=== PATIENT | female | born 1940 | race Caucasian/White ===

== ENCOUNTER 2016-08-08 13:24 | Emergency (ER) | payer MEDICARE, MEDICAID ==
[~2016-08-08 13:24] MED LIST: ALPR.25 PO; CYCL-36 PO; EZET10 PO; FLUT1SPR9 NASAL; GLIM4TAB PO; GLUC1000 PO; INSU1INJ14 SQ; LISI-363 PO; LORTA5 PO; ROSU5 PO; TAB-TAB PO; TEMA15 PO
[2016-08-08 13:26] VITALS: BP 134/82; PULSE 104; RESP 15; TEMP 98.2; O2SAT 98
[2016-08-08] MEDS ORDERED: MORPHINE SULFATE 4 MG/ML INJ IV PUSH ONE (13:45)
[2016-08-08] MEDS ORDERED: SODIUM CHLORIDE 0.9% FLUSH 10 ML FLUSH IV FLUSH PRN (13:45)
[2016-08-08] MEDS ORDERED: DIATRIZOATE MEGLUM/DIATRIZOATE SOD 9 ML CUP ONE (13:48)
--- NOTE | 2016-08-08 13:48 | PD ---
HPI Chief Complaint: GI Complaint Time Seen by Provider: 13:39 Travel History International Travel<30 days: No Contact w/Intl Traveler<30days: No Traveled to known affect area: No History of Present Illness HPI Patient is a 75-year-old female here with complaint of abdominal pain. For the last 2 days she has had pain in the low abdomen/pelvis. This radiates throughout but is more prominent on the right. Associated constipation, states that she is been having "small fili of stool". She is passing significant amount of flatus both with belching and flatulence. Patient denies any nausea, vomiting, fevers, chills. No urinary symptoms. She's had a previous partial hysterectomy but denies any other abdominal surgeries. PFSH Past Medical History Anxiety: Yes Cancer: Yes (LUNG CANCER JUST DIAGNOSED) Cardiovascular Problems: Yes High Cholesterol: Yes Diabetes: Yes Endocrine: Yes Genitourinary: No Hepatitis: No Hiatal Hernia: No Hypertension: Yes (TAKES LISINOPRIL) Musculoskeletal: No Neurologic: No Psychiatric: Yes Reproductive: No Respiratory: No Immunizations Current: Yes Thyroid Disease: No Tubal Ligation: Yes Past Surgical History Abdominal Surgery: No Cardiac Surgery: No Ear Surgery: No Endocrine Surgery: No Eye Surgery: No Genitourinary Surgery: No Gynecologic Surgery: Yes (PARTIAL HYSTERECTOMY) Hysterectomy: Yes (PARTIAL ) Joint Replacement: No Oral Surgery: No Pacemaker: No Thoracic Surgery: No Other Surgery: Yes Social History Alcohol Use: Yes (OCCASIONALLY ) Tobacco Use: No Substance Use: No Allergies-Medications (Allergen,Severity, Reaction): Coded Allergies: Epinephrine (Verified Adverse Reaction, Intermediate, Confusion/PANIC ATTACK, 08/08/16) Reported Meds & Prescriptions Reported Meds & Active Scripts Active Reported Lisinopril 20 Mg Tab 20 Mg PO BID Ranitidine (Ranitidine HCl) 300 Mg Tab 300 Mg PO HS Zetia (Ezetimibe) 10 Mg Tab 10 Mg PO DAILY Glimepiride 4 Mg Tab 4 Mg PO BID Methylphenidate (Methylphenidate HCl) 5 Mg Chew 5 Mg PO BID Take in the morning and at noon for fatigue Gabapentin 300 Mg Cap 300 Mg PO DAILY Temazepam 15 Mg Cap 15 Mg PO HS Alprazolam 0.25 Mg Tab 0.25 Mg PO BID Tresiba Flextouch Pen Inj (Insulin Degludec Inj) 600 unit/3 ML Pen 28 Units SQ DAILY Review of Systems Except as stated in HPI: all other systems reviewed are Neg Physical Exam Narrative GENERAL: Well-appearing female in no acute distress SKIN: Focused skin assessment warm/dry. HEAD: Normocephalic. EYES: No scleral icterus. No injection or drainage. ENT: Mucous membranes pink and moist. NECK: Supple CARDIOVASCULAR: Regular rate and rhythm. RESPIRATORY: No accessory muscle use. GASTROINTESTINAL: Abdomen soft, mild tenderness to palpation of the suprapubic and right lower quadrant without rebound or guarding. No CVA tenderness. MUSCULOSKELETAL: Normal gait NEUROLOGICAL: Awake and alert. Normal speech. PSYCHIATRIC: Appropriate mood and affect; insight and judgment normal. Data Data Last Documented VS Vital Signs Date Time Temp Pulse Resp B/P Pulse Ox O2 Delivery O2 Flow Rate FiO2 08/08/16 14:51 15 08/08/16 14:43 104 125/73 95 Room Air 08/08/16 13:26 98.2 Orders Complete Blood Count With Diff (08/08/16 13:38) Comprehensive Metabolic Panel (08/08/16 13:38) Lipase (08/08/16 13:38) Urinalysis - C+S If Indicated (08/08/16 13:38) Iv Access Insert/Monitor (08/08/16 13:38) Ecg Monitoring (08/08/16 13:38) Oximetry (08/08/16 13:38) Sodium Chloride 0.9% Flush (Ns Flush) (08/08/16 13:45) Ct Abd/Pel W Iv Contrast(Rout) (08/08/16 13:42) Morphine Inj (Morphine Inj) (08/08/16 13:45) Diatrizoate Liq ( Gastroview Liq) (08/08/16 13:48) Oral Contrast - Adult (08/08/16 13:55) Iohexol 350 Inj (Omnipaque 350 Inj) (08/08/16 15:56) Labs Laboratory Tests Test 08/08/16 13:45 White Blood Count 15.2 TH/MM3 Red Blood Count 4.05 MIL/MM3 Hemoglobin 12.7 GM/DL Hematocrit 38.1 % Mean Corpuscular Volume 93.9 FL Mean Corpuscular Hemoglobin 31.2 PG Mean Corpuscular Hemoglobin 33.2 % Concent Red Cell Distribution Width 14.2 % Platelet Count 318 TH/MM3 Mean Platelet Volume 8.1 FL Neutrophils (%) (Auto) 85.0 % Lymphocytes (%) (Auto) 5.6 % Monocytes (%) (Auto) 8.2 % Eosinophils (%) (Auto) 0.5 % Basophils (%) (Auto) 0.7 % Neutrophils # (Auto) 12.9 TH/MM3 Lymphocytes # (Auto) 0.8 TH/MM3 Monocytes # (Auto) 1.2 TH/MM3 Eosinophils # (Auto) 0.1 TH/MM3 Basophils # (Auto) 0.1 TH/MM3 CBC Comment DIFF FINAL Differential Comment Urine Color YELLOW Urine Turbidity HAZY Urine pH 5.5 Urine Specific [place] 1.019 Urine Protein TRACE mg/dL Urine Glucose (UA) NEG mg/dL Urine Ketones NEG mg/dL Urine Occult Blood NEG Urine Nitrite NEG Urine Bilirubin NEG Urine Urobilinogen LESS THAN 2.0 MG/DL Urine Leukocyte Esterase LARGE Urine RBC 2 /hpf Urine WBC 4 /hpf Urine Squamous Epithelial 2 /hpf Cells Urine Bacteria RARE /hpf Urine Hyaline Casts 38 /lpf Urine Mucus FEW /lpf Microscopic Urinalysis Comment CULT NOT INDICATED Sodium Level 136 MEQ/L Potassium Level 3.7 MEQ/L Chloride Level 100 MEQ/L Carbon Dioxide Level 27.5 MEQ/L Anion Gap 9 MEQ/L Blood Urea Nitrogen 21 MG/DL Creatinine 1.18 MG/DL Estimat Glomerular Filtration 45 ML/MIN Rate Random Glucose 213 MG/DL Calcium Level 9.6 MG/DL Total Bilirubin 1.9 MG/DL Aspartate Amino Transf 12 U/L (AST/SGOT) Alanine Aminotransferase 20 U/L (ALT/SGPT) Alkaline Phosphatase 85 U/L Total Protein 7.7 GM/DL Albumin 3.6 GM/DL Lipase 253 U/L [facility] Medical Decision Making Medical Screen Exam Complete: Yes Emergency Medical Condition: Yes Differential Diagnosis 75-year-old female with 2 days of suprapubic and right lower quadrant abdominal tenderness with constipation and increased flatulence and belching. Differential includes UTI, ureterolithiasis, appendicitis, colitis, constipation , bowel obstruction. Overall her abdominal examination is benign making peritoneal pathology less likely. Narrative Course Patient placed on monitor, IV established and blood obtained. 4 mg morphine for pain. CBC, CMP, lipase, urinalysis obtained and notable for mild leukocytosis. CT abdomen and pelvis showed sigmoid diverticulitis. Diagnosis Primary Impression: Diverticulitis Qualified Code: K57.32 - Diverticulitis of large intestine without perforation or abscess without bleeding Referrals: Primary Care Physician as needed Additional Instructions: Antibiotics as prescribed. We'll up with primary care provider symptoms persist and return to the ER for the warning signs discussed. Med/Other Pt SpecificInfo: Prescription(s) given Scripts Metronidazole (Flagyl)500 Mg Uup237 Mg PO TID 7 Days Ref 0 Prov:Margret Avila MD 08/08/16 Ciprofloxacin (Cipro)250 Mg Lik214 Mg PO BID 7 Days Ref 0 Prov:Margret Avila MD 08/08/16 Disposition: 01 DISCHARGE HOME Condition: Stable Magrret Avila MD Aug 08, 2016 13:48
[2016-08-08 14:14] LABS: AUTOMATED NEUTROPHIL # 12.9 TH/MM3 (1.8-7.7); BASOPHIL # 0.1 TH/MM3 (0-0.2); BASOPHIL % 0.7 % (0.0-2.0); EOSINOPHIL # 0.1 TH/MM3 (0-0.4); EOSINOPHIL % 0.5 % (0.0-4.0); HEMATOCRIT 38.1 % (35.0-46.0); HEMO FLAGS DIFF FINAL; LYMPH % 5.6 % (9.0-44.0); LYMPHOCYTE # 0.8 TH/MM3 (1.0-4.8); MEAN CELL VOLUME 93.9 FL (80.0-100.0); MEAN CORPUSCULAR HEMOGLOBIN 31.2 PG (27.0-34.0); MEAN CORPUSCULAR HGB CONC 33.2 % (32.0-36.0); MONO % 8.2 % (0.0-8.0); PLATELET COUNT 318 TH/MM3 (150-450); RED BLOOD COUNT 4.05 MIL/MM3 (4.00-5.30); RED CELL DISTRIBUTION WIDTH 14.2 % (11.6-17.2); WHITE BLOOD COUNT 15.2 TH/MM3 (4.0-11.0)
[2016-08-08 14:17] LABS: BACTERIA, URINE RARE /hpf; BLOOD, URINE NEG (NEG); COMMENT (UR) CULT NOT INDICATED; CULTURE IF INDICATED CULT NOT INDICATED; GLUCOSE,URINE NEG (NEG); HYALINE CAST, URINE 38 /lpf (RARE); KETONE, URINE NEG (NEG); MUCUS URINE FEW /lpf (OCC); NITRITE,URINE NEG (NEG); PH, URINE 5.5 (5.0-8.5); SQUAMOUS EPITHELIAL CELL URINE 2 /hpf (0-5); URINE COLOR YELLOW (YELLW/STRAW)
[2016-08-08 14:34] LABS: ALT (GPT) 20 U/L (10-53); ANION GAP 9 MEQ/L (5-15); AST (GOT) 12 U/L (15-37); BICARBONATE 27.5 MEQ/L (21.0-32.0); BLOOD UREA NITROGEN 21 MG/DL (7-18); CHLORIDE 100 MEQ/L (98-107); GLOMERULAR FILTRATION RATE 45 ML/MIN (>89); POTASSIUM 3.7 MEQ/L (3.5-5.1); SODIUM (NA) 136 MEQ/L (136-145)
[2016-08-08 14:36] LABS: ALKALINE PHOSPHATASE 85 U/L (45-117); TOTAL BILIRUBIN ADULT 1.9 MG/DL (0.2-1.0)
[2016-08-08 14:43] VITALS: BP 125/73; PULSE 104; RESP 15; O2SAT 95
[2016-08-08] MEDS ORDERED: INSU1INJ13 SQ (14:43)
[2016-08-08 14:51] VITALS: RESP 15
[2016-08-08] MEDS ORDERED: IOHEXOL 350 MG/ML 10 ML VIAL (for RAD DIAG) IV ONE (15:56)
[2016-08-08] MEDS ORDERED: METH1CHW2 PO (15:58)
[2016-08-08] MEDS ORDERED: RANI300T PO (15:58)
[2016-08-08] MEDS ORDERED: LISI-515 PO (15:58)
[2016-08-08] MEDS ORDERED: GABA300C5 PO (15:58)
[2016-08-08] MEDS ORDERED: TEMA15CA PO (15:58)
[2016-08-08] MEDS ORDERED: GLIM4TAB PO (15:58)
[2016-08-08] MEDS ORDERED: ALPR0.25 PO (15:58)
[2016-08-08] MEDS ORDERED: ZETI10TA5 PO (15:58)
--- NOTE | 2016-08-08 16:22 | RADRPT ---
EXAM DATE/TIME: 08/08/2016 15:44 [place] COMPARISON: No previous studies available for comparison. INDICATIONS : Left abdominal pain, constipation and vomiting. IV CONTRAST: 70 cc Omnipaque 350 (iohexol) IV ORAL CONTRAST: Prescribed oral contrast ingested. RADIATION DOSE: 6.60 CTDIvol (mGy) MEDICAL HISTORY : Cardiovascular disease. Hypertension. Carcinoma, lung.Diabetes SURGICAL HISTORY : Hysterectomy. ENCOUNTER: Initial ACUITY: 2 days PAIN SCALE: 6/10 LOCATION: Left abdomen TECHNIQUE: Volumetric scanning of the abdomen and pelvis was performed. Using automated exposure control and ad justment of the mA and/or kV according to patient size, radiation dose was kept as low as reasonably achievable to obtain optimal diagnostic quality images. DICOM format image data is available electro nically for review and comparison. FINDINGS: LOWER LUNGS: Patchy opacity is noted within the right posterior lung base and consistent with possible atelectasis and/or pneumonia. A small pericardial effusion is noted. LIVER: Homogeneous density without lesion. There is no dilation of the biliary tree. No calcified gallston es. SPLEEN: Normal size without lesion. PANCREAS: Within normal limits. KIDNEYS: Normal in size and shape. There is no solid mass, stone or hydronephrosis. Right renal cysts are not ed with the larger measuring 5.7 cm. ADRENAL GLANDS: Within normal limits. VASCULAR: There is no aortic aneurysm. BOWEL/MESENTERY: Mild pericolic inflammatory changes are noted in the region of the distal descending colon consistent with probable acute diverticulitis. Clinical correlation is recommended. ABDOMINAL WALL: Within normal limits. RETROPERITONEUM: There is no lymphadenopathy. BLADDER: No wall thickening or mass. REPRODUCTIVE: Within normal limits. INGUINAL: There is no lymphadenopathy or hernia. MUSCULOSKELETAL: Degenerative changes and scoliosis of the lumbar spine are noted. CONCLUSION: 1. Pericolic inflammatory changes involving the distal descending colon consistent with probable acut e diverticulitis. Clinical correlation is recommended. 2. Focal patchy opacity within the right posterior medial lung base consistent with atelectasis and/o r pneumonia. 3. Small pericardial effusion. 4. Degenerative changes and scoliosis of the lumbar spine. 5. Right renal cyst. Clement Pace MD on August 08, 2016 at 16:15 Board Certified Radiologist. This report was verified electronically.
[2016-08-08] MEDS ORDERED: ASPI325T PO (16:31)
[2016-08-08] MEDS ORDERED: CIPR250T52 PO (16:33)
[2016-08-08] MEDS ORDERED: METR-1 PO (16:33)
[2016-08-08 16:37] VITALS: BP 130/84
== END 2016-08-08 16:50 | disposition home or self-care (01) ==
LOC: NEPD 13:24
DX: K57.32 Diverticulitis of large intestine without perforation or abscess without bleeding (principal)
CPT/HCPCS: 74177; 80053; 81001; 83690; 85025; 96374; 99285; J2270; Q9963; Q9967